=== PATIENT | male | born 1955 | race Caucasian/White ===

== ENCOUNTER 2018-01-22 15:37 | Emergency (ER) | payer MEDICAID ==
[~2018-01-22] VITALS: Ht 188 cm; Wt 91.9 kg
[2018-01-22] MEDS ORDERED: SODIUM CHLORIDE 0.9% 1,000ML IVBOLUS ONE (16:30)
[2018-01-22] MEDS ORDERED: SODIUM CHLORIDE FLUSH 10ML SYR IVF ONE (16:30)
[2018-01-22] MEDS ORDERED: MECLIZINE CHEWABLE 25 MG TAB PO ONE (16:30)
[2018-01-22 16:36] LABS: BASOPHILS # (AUTO) 0.02 x10^3/uL (0-0.1); BASOPHILS % (AUTO) 0 % (0-1); EOSINOPHILS # (AUTO) 0.04 x10^3/uL (0-0.4); EOSINOPHILS % (AUTO) 1 % (1-7); LYMPHOCYTES # (AUTO) 0.68 x10^3/uL (1-3.4); LYMPHOCYTES % (AUTO) 16 % (22-44); MD NO; MEAN CORPUSCULAR HEMOGLOBIN 33.3 pg (27.5-34.5); MEAN CORPUSCULAR HGB CONC 34.7 g/dL (33.2-36.2); MEAN CORPUSCULAR VOLUME 95.9 fL (81-97); MEAN PLATELET VOLUME 8.7 fL (7.4-10.4); MONOCYTES # (AUTO) 0.24 x10^3/uL (0.2-0.8); MONOCYTES % (AUTO) 6 % (2-9); NEUTROPHILS % (AUTO) 77 % (42-75); PLATELET COUNT 134 x10^3/uL (130-400); RED BLOOD COUNT 4.76 x10^6/uL (4.38-5.82); RED CELL DISTRIBUTION WIDTH 13.2 % (9.4-14.8)
[2018-01-22] MEDS ORDERED: MECLIZINE CHEWABLE 25 MG TAB ONE (16:41)
[2018-01-22 16:48] LABS: ALANINE AMINOTRANSFERASE 154 U/L (12-78); ALBUMIN 3.6 g/dL (3.4-5.0); ANION GAP 10 mmol/L (5-15); CALCIUM 8.9 mg/dL (8.5-10.1); CHLORIDE 105 mmol/L (98-107); CREATININE 1.51 mg/dL (0.7-1.3)
[2018-01-22 16:50] LABS: ALKALINE PHOSPHATASE 106 U/L (45-117); BILIRUBIN,TOTAL 0.6 mg/dL (0.2-1.0); TOTAL PROTEIN 7.7 g/dL (6.4-8.2)
[2018-01-22 18:03] LABS: MICROSCOPIC NOT IND
[2018-01-22 18:04] LABS: CULTURE INDICATED? NO
[2018-01-22] MEDS ORDERED: HTN (18:56)
[2018-01-22] MEDS ORDERED: ASPI-496 PO (18:56)
[2018-01-22 18:58] VITALS: BP 138/91
== END 2018-01-22 19:23 | disposition home or self-care (01) ==
LOC: ED 17:26
DX: R42 Dizziness and giddiness (principal); R20.2 Paresthesia of skin; R47.81 Slurred speech; I10 Essential (primary) hypertension
CPT/HCPCS: 36415; 70450; 80053; 81003; 82140; 85025; 93005; 96360; 96361; 99285; J7030

== ENCOUNTER 2020-05-11 20:28 | Emergency (ER) | payer MEDICAID ==
[~2020-05-11] VITALS: Ht 188 cm; Wt 89.2 kg
[~2020-05-11 20:28] MED LIST: ASPI-496 PO; HTN
[2020-05-11] MEDS ORDERED: ACETAMINOPHEN 500 MG TABLET ONE (20:52)
[2020-05-11] MEDS ORDERED: ACETAMINOPHEN 500 MG TABLET PO ONE (21:00)
[2020-05-11 23:48] VITALS: BP 122/88
== END 2020-05-11 23:51 | disposition home or self-care (01) ==
LOC: ED 21:18
DX: S93.492A Sprain of other ligament of left ankle, initial encounter (principal); S29.012A Strain of muscle and tendon of back wall of thorax, initial encounter; I10 Essential (primary) hypertension; W01.0XXA Fall on same level from slipping, tripping and stumbling without subsequent striking against object, initial encounter; Y93.89 Activity, other specified; Y92.009 Unspecified place in unspecified non-institutional (private) residence as the place of occurrence of the external cause; Y99.8 Other external cause status
CPT/HCPCS: 71045; 99284

== ENCOUNTER 2020-05-17 17:02 | Emergency (ER) | payer MEDICAID ==
[~2020-05-17] VITALS: Ht 188 cm; Wt 92.2 kg
--- NOTE | 2020-05-17 18:57 | NUR ---
REPORT GIVEN TO ALEJANDRO TOMAS. PT RESTING IN BED. PT UP FOR RECHECK. ALL RESULTS BACK.
--- NOTE | 2020-05-17 19:32 | NUR ---
PT REMAINS IN BED, ALL NEEDS MET AT THIS TIME. TALKING ON PHONE. L[place].
--- NOTE | 2020-05-17 20:33 | NUR ---
PT AMBULATORY TO BATHROOM WITH STEADY GAIT.
--- NOTE | 2020-05-17 21:47 | NUR ---
PT REMAINS IN BED, NADN. ALL NEEDS MET AT THIS TIME. NADN.
[2020-05-17 22:31] VITALS: BP 160/96
== END 2020-05-17 23:34 | disposition home or self-care (01) ==
LOC: ED 21:41
DX: S32.019A Unspecified fracture of first lumbar vertebra, initial encounter for closed fracture (principal); M54.6 Pain in thoracic spine; W18.30XA Fall on same level, unspecified, initial encounter; Y93.89 Activity, other specified; Y92.89 Other specified places as the place of occurrence of the external cause; Y99.8 Other external cause status
CPT/HCPCS: 72072; 72110; 72128; 72131; 99285

== ENCOUNTER 2020-11-03 16:49 | Emergency (ER) | payer MEDICAID ==
[~2020-11-03] VITALS: Ht 190.5 cm; Wt 86.2 kg
--- NOTE | 2020-11-03 18:30 | NUR ---
PT STATING "I THINK I HAVE NASAL POLYPS", SEEN [facility] SAME. STATES HE HAS"FOUL SMELLING MUCOUS". PT ATTACHED TO MONITOR. VSS. STEPHENN. POSTIONED TO COMFORT. AWAITNG ORDERS.
[2020-11-03 18:31] VITALS: BP 151/114
--- NOTE | 2020-11-03 18:52 | NUR ---
report given to Robyn GONZALEZ RN.
--- NOTE | 2020-11-03 18:53 | NUR ---
BEDSIDE REPORT FROM [facility] OF [facility]ARE AT THIS TIME
--- NOTE | 2020-11-03 18:59 | NUR ---
Patient given discharge instructions and they have confirmed that they understand the instructions. Patient ambulatory with steady gait.
== END 2020-11-03 19:01 | disposition home or self-care (01) ==
LOC: ED 18:50
DX: J01.00 Acute maxillary sinusitis, unspecified (principal); R09.81 Nasal congestion
CPT/HCPCS: 99283